=== PATIENT | female | born 1985 ===

== ENCOUNTER 2019-11-29 08:17 | Emergency (ER) | payer BC, SELFPAY ==
[2019-11-29 08:30] VITALS: BP 122/70; PULSE 149; RESP 18; TEMP 36.9; O2SAT 100; BMI 22.3
--- NOTE | 2019-11-29 08:42 | ED_ITS ---
HPI - General Adult General: Chief complaint: General Medical, Adult Stated complaint: blood sugar, patient was here for step-daughters cheerleading performance, when she noted her POD was malfunctioning. Patient noted her last 12 hours her blood sugar has been reading high which was greater than 400. Patient usually has backup pen but does not have one available at this time. Patient appears well. Patient appears in no pain. Patient also reports some flank pain and is concern she may be getting a kidney infection. Time Seen by Provider: 11/29/19 08:20 Review of Systems General: Reports: 10 or more systems reviewed and unremarkable except in HPI and below Musc: Reports: back pain Endo: Reports: other (high blood sugar) PFSH ED PFSH: Statuses (acute, chronic, etc) shown below reflect problem list status as previously entered and may not be historically accurate Social History Smoking and tobacco status: never smoked Physical Exam Const: COMMON NORMALS: no apparent distress and oriented x3 GENERAL APPEARANCE: cooperative OTHER: patient smell of acetone HENMT: COMMON NORMALS: normocephalic, external ears normal, EAC's normal, TM's normal bilaterally and external nose normal HEAD & SCALP: normal to inspection and normocephalic FACE & SINUS: normal facial exam NOSE: external nose normal GENERAL EAR: hearing grossly impaired EXTERNAL EAR: Yes external ears normal EXTERNAL AUDITORY CANAL: EAC's normal TYMPANIC MEMBRANE: TM's normal bilaterally MOUTH: oral and palatal mucosa normal and malodorous breath ketones THROAT: posterior oropharynx normal Eye: COMMON NORMALS: PERRL and EOMs intact bilaterally PUPIL: Yes PERRL Neck/C-Spine: COMMON NORMALS: full ROM and no lymphadenopathy Lymph: LYMPHATIC: no lymphedema noted Chest: COMMONS NORMALS: inspection of chest normal and palpation of chest normal Resp: COMMON NORMALS: normal respiratory effort and clear to auscultation bilaterally AUSCULTATION: clear to auscultation bilaterally Cardio: COMMON NORMALS: regular rate and regular rhythm RATE: regular rate RHYTHM: regular rhythm GI: COMMON NORMALS: normal to inspection, nondistended, normoactive bowel sounds and non-tender : COMMON NORMALS: Yes no CVA tenderness BLADDER/KIDNEY EXAM: Yes no CVA tenderness Back/Pelvis: COMMON NORMALS: no CVA tenderness and thoracic and lumbar spine normal to inspection Extremity: COMMON NORMALS: normal to inspection GENERAL: No edema Neuro: COMMON NORMALS: oriented x3, moves all extremities and no focal motor deficits Psych: COMMON NORMALS: mental status grossly normal and cooperative Skin: COMMON NORMALS: no rashes or lesions noted GENERAL SKIN EXAM: no rashes or lesions noted Course Vital Signs: Vital signs: Vital Signs Temperature 98.4 F 11/29/19 08:30 Pulse Rate 87 11/29/19 09:57 Respiratory Rate 16 11/29/19 09:57 Blood Pressure 91/55 11/29/19 09:57 Pulse Oximetry 100 11/29/19 09:57 MDM - General Adult MDM Narrative: Medical decision making narrative: Patient presents with need for insulin syringes and high blood sugar. Patient has a pot that usually manages her blood sugars but he had malfunction. Patient did not have any syringes that she could use. On exam patient appears well. Patient does have a very acetone smell to her. Heart rate is tachycardic. Respirations are even lungs are clear to auscultation. Differential diagnosis includes diabetic ketoacidosis, UTI, hyperglycemia, uncontrolled diabetes type 1. Laboratory values noted no serum ketones. Blood sugar was in the 500s. Patient was treated with IV fluids and 10 units of IV insulin. Patient had improvement after fluids infusion. Patient was written prescription for insulin syringes and released with routine care. Lab Data: Labs: Lab Results 11/29/19 11/29/19 11/29/19 Range/Units 08:40 08:43 08:43 WBC 6.2 (4.0-10.0) 10^3/ uL RBC 4.66 (4.1-5.3) 10^6/u L Hgb 12.2 (11.5-15.3) g/dL Hct 38.4 (37.0-47.0) % MCV 82.4 (81-99) fL MCH 26.2 L (28.0-34.0) pg MCHC 31.8 (30.0-36.0) g/dL RDW 14.6 (12.1-15.1) % Plt Count 207 (130-400) 10^3/c mm MPV 11.3 H (7.4-10.4) fL Neut % (Auto) 66.5 % Lymph % (Auto) 23.6 % Pershing % (Auto) 7.6 % Eos % (Auto) 1.3 % Baso % (Auto) 0.7 % Neut # (Auto) 4.1 (1.8-7.7) 10^3/u L Lymph # (Auto) 1.5 (0.8-4.8) 10^3/u L Pershing # (Auto) 0.5 (0.2-0.9) 10^3/u L Eos # (Auto) 0.1 (0.0-0.8) 10^3/u L Baso # (Auto) 0.0 (0.0-0.1) 10^3/u L Nucleated RBC % (a uto) 0 % Nucleated RBCs # 0.0 /100WBC Sodium 132 L (136-145) mmol/L Potassium 4.5 (3.5-5.1) mmol/L Chloride 94 L (98-107) mmol/L Carbon Dioxide 20 L (22-29) mmol/L Anion Gap 22.5 H (5-19) BUN 14 (6-20) mg/dL Creatinine 0.8 (0.5-0.9) mg/dL GFR Calculation 82.6 L (90-130) mL/min Glucose 537 H* (74-109) mg/dL POC Glucose 421 (70-110) mg/dL Calcium 10.3 H (8.6-10.0) mg/Dl Total Bilirubin 1.0 (0.15-1.2) mg/dL AST 16 (0-32) U/L ALT 10 (0-33) U/L Alkaline Phosphata se 104 (35-105) IU/L Total Protein 7.8 (6.6-8.7) g/dL Albumin 5.6 H (3.5-5.2) g/dL Globulin 2.2 (1.3-4.6) g/dL Urine Color (Yellow) Urine Appearance (CLEAR) Urine pH (5-7) Ur Specific Gravit y (1.005-1.030) Urine Protein (Negative) Urine Glucose (UA) (Normal) Urine Ketones (Negative) Urine Occult Blood (Negative) Urine Nitrate (Negative) Urine Bilirubin (NEGATIVE) Urine Urobilinogen (Negative) mg/dL Ur Leukocyte Tiffanie ase (Negative) Urine RBC (0-2) /hpf Urine WBC (0-5) /hpf Ur Squamous Epith Cells (0-5) Urine Bacteria (NONE) Serum Ketones (Negative) 11/29/19 11/29/19 11/29/19 Range/Units 08:43 09:08 09:40 WBC (4.0-10.0) 10^3/ uL RBC (4.1-5.3) 10^6/u L Hgb (11.5-15.3) g/dL Hct (37.0-47.0) % MCV (81-99) fL MCH (28.0-34.0) pg MCHC (30.0-36.0) g/dL RDW (12.1-15.1) % Plt Count (130-400) 10^3/c mm MPV (7.4-10.4) fL Neut % (Auto) % Lymph % (Auto) % Pershing % (Auto) % Eos % (Auto) % Baso % (Auto) % Neut # (Auto) (1.8-7.7) 10^3/u L Lymph # (Auto) (0.8-4.8) 10^3/u L Pershing # (Auto) (0.2-0.9) 10^3/u L Eos # (Auto) (0.0-0.8) 10^3/u L Baso # (Auto) (0.0-0.1) 10^3/u L Nucleated RBC % (a uto) % Nucleated RBCs # /100WBC Sodium (136-145) mmol/L Potassium (3.5-5.1) mmol/L Chloride (98-107) mmol/L Carbon Dioxide (22-29) mmol/L Anion Gap (5-19) BUN (6-20) mg/dL Creatinine (0.5-0.9) mg/dL GFR Calculation (90-130) mL/min Glucose (74-109) mg/dL POC Glucose 449 (70-110) mg/dL Calcium (8.6-10.0) mg/Dl Total Bilirubin (0.15-1.2) mg/dL AST (0-32) U/L ALT (0-33) U/L Alkaline Phosphata se (35-105) IU/L Total Protein (6.6-8.7) g/dL Albumin (3.5-5.2) g/dL Globulin (1.3-4.6) g/dL Urine Color Yellow (Yellow) Urine Appearance Clear (CLEAR) Urine pH 5 (5-7) Ur Specific Gravit y 1.005 (1.005-1.030) Urine Protein Neg (Negative) Urine Glucose (UA) 4+ H (Normal) Urine Ketones 2+ H (Negative) Urine Occult Blood Neg (Negative) Urine Nitrate Negative (Negative) Urine Bilirubin Neg (NEGATIVE) Urine Urobilinogen Norm (Negative) mg/dL Ur Leukocyte Tiffanie ase Negative (Negative) Urine RBC None (0-2) /hpf Urine WBC None (0-5) /hpf Ur Squamous Epith Cells 0-4 H (0-5) Urine Bacteria Trace (NONE) Serum Ketones Negative (Negative) Discharge Plan Discharge Patient Disposition: Home, Self-Care Clinical Impression: Acute hyperglycemia Type 1 diabetes mellitus Qualifiers: Diabetes mellitus complication status: with hyperglycemia Qualified Code(s): E10.65 - Type 1 diabetes mellitus with hyperglycemia Condition: Stable Prescriptions: New Lantus U-100 Insulin 100 unit/mL solution 50 unit SUBCUT DAILY Qty: 10 RF: 0 Discharge Orders: Discharge Order (Routine); Ordered 11/29/19 Ordered By: Osorio Woodward Discharge Diet: Usual diet Discharge Activity: Resume usual activity Patient Instructions: Type 1 Diabetes, Hyperglycemia, How to Check Your Blood Sugar (ED) Activity Restrictions/Additional Instructions: Continue with routine treatment Activity as tolerated Follow-up with primary care as needed Coding Level of Care Code ED Computer Technologist for Conner Fwliza Exam Problem Focused
[2019-11-29 08:48] VITALS: BP 122/70; PULSE 142; RESP 18; O2SAT 100
[2019-11-29 08:50] LABS: Glucose Point of Care 421 mg/dL (70-110)
[2019-11-29 09:00] LABS: Basophils % 0.7 %; Eosinophils # 0.1 10^3/uL (0.0-0.8); Eosinophils % 1.3 %; Hematocrit 38.4 % (37.0-47.0); Hemoglobin 12.2 g/dL (11.5-15.3); Lymphocytes # 1.5 10^3/uL (0.8-4.8); Lymphocytes % 23.6 %; Mean Corpuscular HGB Conc 31.8 g/dL (30.0-36.0); Mean Corpuscular Hemoglobin 26.2 pg (28.0-34.0); Mean Corpuscular Volume 82.4 fL (81-99); Mean Platelet Volume 11.3 fL (7.4-10.4); Monocytes # 0.5 10^3/uL (0.2-0.9); Monocytes % 7.6 %; Neutrophils # 4.1 10^3/uL (1.8-7.7); Neutrophils % 66.5 %; Nucleated Red Blood Cells % 0 %; Platelet Count 207 10^3/cmm (130-400); Red Blood Count 4.66 10^6/uL (4.1-5.3); Red Cell Distribution Width 14.6 % (12.1-15.1); White Blood Count 6.2 10^3/uL (4.0-10.0)
[2019-11-29] MEDS: sodium chloride 0.9% 1,000 ML 999 ML IV (09:02)
[2019-11-29] MEDS: insulin regular-human 100 units/1 mL 10 UNIT IV (09:07)
[2019-11-29 09:12] VITALS: BP 99/48; PULSE 105; RESP 16; O2SAT 100
[2019-11-29 09:18] LABS: Alanine Aminotransferase 10 U/L (0-33); Albumin Level 5.6 g/dL (3.5-5.2); Alkaline Phosphatase 104 IU/L (35-105); Anion Gap 22.5 (5-19); Aspartate Amino Transferase 16 U/L (0-32); Blood Urea Nitrogen 14 mg/dL (6-20); Calcium 10.3 mg/Dl (8.6-10.0); Carbon Dioxide 20 mmol/L (22-29); Chloride 94 mmol/L (98-107); Globulin 2.2 g/dL (1.3-4.6); Glomerular Filtration Rate 82.6 mL/min (90-130); Potassium 4.5 mmol/L (3.5-5.1); Sodium 132 mmol/L (136-145); Total Protein 7.8 g/dL (6.6-8.7)
[2019-11-29 09:22] LABS: Ketone (Acetest) Serum Negative (Negative)
[2019-11-29 09:28] LABS: Bilirubin Urine Neg (NEGATIVE); Blood Urine Neg (Negative); Glucose Urine UA 4+ (Normal); Ketones Urine 2+ (Negative); Leukocyte Esterase Urine Negative (Negative); Nitrate Urine Negative (Negative); Protein Urine Neg (Negative); Specific Gravity, Urine 1.005 (1.005-1.030); Urine Appearance Clear (CLEAR); Urine Color Yellow (Yellow); Urobilinogen Urine Norm (Negative); pH Urine 5 (5-7)
[2019-11-29 09:32] VITALS: BP 94/46; PULSE 99; RESP 17; O2SAT 100
[2019-11-29 09:36] LABS: Add Urine Culture? No; Bacteria Urine TRACE; Squamous Epithelial Cell Urine 0-4 (0-5)
[2019-11-29 09:36] LABS: Glucose 537 mg/dL (74-109)
[2019-11-29 09:45] LABS: Glucose Point of Care 449 mg/dL (70-110)
[2019-11-29 09:57] VITALS: BP 91/55; PULSE 87; RESP 16; O2SAT 100
[2019-11-29 10:29] LABS: Glucose Point of Care 347 mg/dL (70-110)
[2019-11-29 10:37] VITALS: BP 101/48; PULSE 99; RESP 17; O2SAT 100
== END 2019-11-29 10:37 | disposition home or self-care (01) ==
PROVIDERS: Emergency Provider Nurse Practitioner Family
DX: E10.65 Type 1 diabetes mellitus with hyperglycemia (principal)
CPT/HCPCS: 36416; 80053; 81001; 82009; 82962; 85025; 96360; 96374; 99282; A9270; J1815; J7030